=== PATIENT | female | born 1955 | race Caucasian/White ===

== ENCOUNTER → 2019-10-10 12:39 | Outpatient (CLI) | payer OTHER, SELFPAY ==
[2019-10-10 13:38] LABS: Add Manual Diff / Slide Review NO; Basophils Absolute Auto 100 /uL (0-100); Basophils Percent Auto 1.2 % (0-2); Eosinophils Absolute Auto 300 /uL (0-450); Eosinophils Percent Auto 6.4 % (2-4); Hematocrit 42.2 % (36-46); Hemoglobin 14.5 g/dL (12.0-16.0); Lymphocytes Absolute Auto 1500 /uL (1100-4500); Lymphocytes Percent Auto 28.3 % (25-40); Mean Corpuscular HGB Conc 34.3 % (30-36); Mean Corpuscular Hemoglobin 27.7 PG (26-34); Mean Corpuscular Volume 80.6 fL (80-100); Monocytes Absolute Auto 600 /uL (0-900); Monocytes Percent Auto 11.3 % (3-14); Neutrophils Absolute Auto 2800 /uL (1500-7000); Neutrophils Percent Auto 52.8 % (50-75); Platelet Count 260 X10^3/uL (150-400); Red Blood Cell Count 5.23 X10^6/uL (4.0-5.2); Red Cell Distribution Width 13.8 % (11.6-14.8); White Blood Cell Count 5.3 X10^3/uL (4.5-11.0)
[2019-10-10 13:46] LABS: BUN Creatinine Ratio 22.7 (6-22); Blood Urea Nitrogen 17 mg/dL (7-17); Calcium 10.1 mg/dL (8.4-10.2); Carbon Dioxide 34 mmol/L (22-32); Chloride 98 mmol/L (98-107); Cholesterol 244 mg/dL (140-199); Estimated Glomerular Filt Rate > 60.0 mL/min (>60); Glucose 104 mg/dL (80-110); HDL Cholesterol 35 mg/dL (40-60); HEMOLYSIS < 15 (0-50); Potassium 4.1 mmol/L (3.4-5.1); Sodium 139 mmol/L (137-145); Triglycerides 432 mg/dL (35-150)
== END ==
PROVIDERS: Family Provider Family Medicine; PCP Family Medicine; Referring Provider Internal Medicine Cardiovascular Disease; Visit Provider Internal Medicine Cardiovascular Disease
DX: I10 Essential (primary) hypertension (principal); E78.5 Hyperlipidemia, unspecified
CPT/HCPCS: 36415; 80048; 80061; 85025

== ENCOUNTER → 2019-12-25 09:01 | Outpatient (CLI) | payer OTHER, SELFPAY ==
--- NOTE | 2019-12-25 | DI.ECHO.S_ITS ---
[place] [facility] +---------+ : : [address] : [address] [place] : : : : [id number] : : : : Phone: [phone]+ Echocardiogram Report + + :Name: GE WYATT Study Date: 12/25/2019 Height: 62 in : :[facility] Weight: 127 lb : : Gender: Female BSA: 1.6 m2 : :: 1955 Age: 64 yrs BP: 165/70 mmHg: :Reason For Study: MURMUR : :Ordering Physician: ANGIE, : :PORSCHE Performed By: Isabel Pan : :Referring: PORSCHE BANGURA : + + Interpretation Summary 1) Normal left ventricular size, thickness, wall motion, and systolic function (EF 60-65%). 2) Normal right ventricular size and function. 3) Aortic sclerosis present but no stenosis or regurgitation present. 4) No prior Echo available for comparison. Procedure: A two-dimensional transthoracic echocardiogram with color flow and Doppler was performed. The study quality was technically adequate. There is no prior echocardiogram noted for this patient. The patient was in sinus bradycardia with heart rates between 57-61 bpm during the exam. Left Ventricle: The left ventricle is normal in size and wall thickness. The ejection fraction is estimated to be 60-65%. Diastolic parameters suggest probable normal left ventricular diastolic function and normal filling pressures. Right Ventricle: The right ventricle is normal in size and function. Atria: Both atria are normal in size. There is no Doppler evidence for an interatrial shunt. Mitral Valve: The mitral valve is normal in structure and function. There is trace mitral regurgitation. Aortic Valve: There is discrete nodular thickening of the non- coronary cusp. The aortic valve is mildly calcified. The aortic valve is trileaflet. There is no aortic valve stenosis. No aortic regurgitation is present. Tricuspid Valve: The tricuspid valve is normal in structure and function. There is a trace or physiologic amount of tricuspid regurgitation. Pulmonary artery pressures cannot be estimated because of the lack of a measurable TR jet velocity but the IVC suggests a CVP of around 3 mmHg. Pulmonic Valve: The pulmonic valve is not well visualized. The pulmonic valve is not well seen, but is grossly normal. There is no pulmonic valvular regurgitation. Great Vessels: The aortic root is normal size. The ascending aorta is normal in size. The IVC is of normal diameter and collapses greater than 50% with a sniff. This suggests a low right atrial pressure of 3 mm Hg. Pericardium/ Pleura There is no pericardial effusion. There is no pleural effusion. MMode/2D Measurements & Calculations LVIDd: 4.2 cm LVOT diam: 2.0 cm LVIDs: 2.7 cm Ao root diam: 2.6 cm FS: 35.4 % asc Aorta Diam: 2.7 cm EPSS: 0.44 cm Ao Arch Diam (Prox Trans): 2.5 cm IVSd: 0.79 cm LVPWd: 0.73 cm LV clark. diameter/BSA (cm/m^2): 2.7 LV sys. diameter/BSA (cm/m^2): 1.7 LA A2 area: 13.3 cm2 RA long axis: 3.9 cm LA A4 area: 8.7 cm2 RA area: 8.2 cm2 LA length (vol): 4.0 cm RA vol: 14.7 ml LA vol: 24.6 ml RA : 9.3 ml/m2 LA vol index: 15.7 ml/m2 IVC diam: 1.3 cm RVD1 (basal): 2.6 cm TAPSE: 1.9 cm Doppler Measurements & Calculations Ao V2 max: 177.1 cm/sec LVOT Max Suhas: 113.3 cm/sec Ao V2 mean: 122.6 cm/sec LV V1 max P.1 mmHg Ao max P.5 mmHg LV V1 VTI: 26.3 cm Ao mean P.9 mmHg SANJUANITA(I,D): 2.0 cm2 Ao V2 VTI: 40.1 cm SANJUANITA(V,D): 2.0 cm2 sev ratio: 0.66 SANJUANITA indexed to BSA (cm^2/m^2): 1.3 MV E max suhas: 51.4 cm/sec PA V2 max: 87.7 cm/sec MV A max suhas: 72.0 cm/sec PA V2 mean: 63.9 cm/sec MV E/A: 0.71 PA mean P.8 mmHg Med Peak E' Suhas: 5.5 cm/sec PA pr(Accel): 10.5 mmHg E/E' med: 9.4 Lat Peak E' Suhas: 7.5 cm/sec E/E' lat: 6.9 E/e' average: 8.1 MV dec time: 0.34 sec SV(LVOT): 81.5 ml Reading Physician:01:08 PM
== END ==
PROVIDERS: Family Provider Family Medicine; PCP Family Medicine; Referring Provider Internal Medicine Cardiovascular Disease; Visit Provider Internal Medicine Cardiovascular Disease
DX: R01.1 Cardiac murmur, unspecified (principal)
CPT/HCPCS: 93306

== ENCOUNTER → 2022-08-24 08:16 | Outpatient (CLI) | payer MEDICARE, OTHER, SELFPAY ==
[2022-08-24 09:08] LABS: Add Manual Diff / Slide Review NO; Basophils Absolute Auto 100 /uL (0-100); Basophils Percent Auto 1.4 % (0-2); Eosinophils Absolute Auto 300 /uL (0-450); Eosinophils Percent Auto 7.4 % (2-4); Hemoglobin 13.5 g/dL (12.0-16.0); Lymphocytes Absolute Auto 1300 /uL (1100-4500); Lymphocytes Percent Auto 27.1 % (25-40); Mean Corpuscular HGB Conc 33.7 % (30-36); Monocytes Absolute Auto 500 /uL (0-900); Monocytes Percent Auto 10.1 % (3-14); Neutrophils Absolute Auto 2600 /uL (1500-7000); Platelet Count 247 X10^3/uL (150-400); Red Cell Distribution Width 13.5 % (11.6-14.8); White Blood Cell Count 4.7 X10^3/uL (4.5-11.0)
[2022-08-24 09:44] LABS: Creatinine Urine Random 115.7 mg/dL
[2022-08-24 09:46] LABS: Alanine Aminotransferase 41 IU/L (<35); Albumin 4.4 g/dL (3.5-5.0); Albumin Globulin Ratio 1.5 (1.0-2.8); Alkaline Phosphatase 80 U/L (38-126); Aspartate Aminotransferase 33 IU/L (14-36); BUN Creatinine Ratio 17.6 (6-22); Bilirubin Total 0.5 mg/dL (0.2-1.3); Blood Urea Nitrogen 15 mg/dL (7-17); Calcium 9.5 mg/dL (8.4-10.2); Carbon Dioxide 33 mmol/L (22-32); Chloride 97 mmol/L (98-107); Cholesterol 184 mg/dL (140-199); Estimated Glomerular Filt Rate > 60 mL/min (>60); Globulin 2.9 g/dL (1.7-4.1); Glucose 166 mg/dL (80-110); HDL Cholesterol 35 mg/dL (40-60); HEMOLYSIS < 15 (0-50); Potassium 4.9 mmol/L (3.4-5.1); Sodium 137 mmol/L (137-145); Total Protein 7.3 g/dL (6.3-8.2); Triglycerides 436 mg/dL (35-150)
[2022-08-24 09:51] LABS: Microalbumi Creatinin Ratio Ur 6.9 ug/mg CR (<30); Microalbumin Urine Random 0.8 mg/dL (0-1.6)
[2022-08-24 10:13] LABS: TSH w/ Reflex to FT4 4.22 uIU/mL (0.47-4.68)
== END ==
PROVIDERS: Family Provider Family Medicine; PCP Family Medicine; Referring Provider Nurse Practitioner; Visit Provider Nurse Practitioner
DX: E11.9 Type 2 diabetes mellitus without complications (principal); L65.9 Nonscarring hair loss, unspecified
CPT/HCPCS: 36415; 80053; 80061; 82043; 82570; 84443; 85025

== ENCOUNTER → 2023-09-14 16:32 | Outpatient (CLI) | payer MEDICARE, OTHER, SELFPAY ==
[2023-09-14 18:29] LABS: Hemoglobin A1C% w Est Avg Glu 7.8 % (4.0-6.0)
[2023-09-14 19:03] LABS: BUN Creatinine Ratio 17.3 (6-22); Blood Urea Nitrogen 13 mg/dL (7-17); Carbon Dioxide 32 mmol/L (22-32); Chloride 99 mmol/L (98-107); Estimated Glomerular Filt Rate > 60 mL/min (>60); Glucose 191 mg/dL (80-110); HEMOLYSIS < 15 (0-50); Potassium 3.8 mmol/L (3.4-5.1); Sodium 138 mmol/L (137-145)
== END ==
PROVIDERS: Family Provider Family Medicine; PCP Family Medicine; Referring Provider Family Medicine; Visit Provider Family Medicine
DX: E11.9 Type 2 diabetes mellitus without complications (principal); I10 Essential (primary) hypertension; E78.2 Mixed hyperlipidemia; R07.89 Other chest pain
CPT/HCPCS: 36415; 80048; 83036

== ENCOUNTER → 2024-02-16 17:01 | Outpatient (CLI) | payer MEDICARE, OTHER, SELFPAY ==
[2024-02-16 18:20] LABS: Blood Urea Nitrogen 18 mg/dL (7-17); Calcium 9.8 mg/dL (8.4-10.2); Carbon Dioxide 28 mmol/L (22-32); Chloride 101 mmol/L (98-107); Cholesterol 131 mg/dL (140-199); Estimated Glomerular Filt Rate > 60 mL/min (>60); Glucose 117 mg/dL (80-110); HDL Cholesterol 36 mg/dL (40-60); HEMOLYSIS 26 (0-50); LDL Cholesterol Calculated 32 mg/dL (<100); Sodium 139 mmol/L (137-145); Triglycerides 317 mg/dL (35-150)
[2024-02-16 21:01] LABS: Hemoglobin A1C% w Est Avg Glu 6.6 % (4.0-6.0)
[2024-02-17 16:47] LABS: Hep C Virus Ab w/Reflex Quant NEGATIVE s/c (NEGATIVE)
== END ==
PROVIDERS: Family Provider Family Medicine; PCP Family Medicine; Referring Provider Family Medicine; Visit Provider Family Medicine
DX: E11.9 Type 2 diabetes mellitus without complications (principal); I10 Essential (primary) hypertension; E78.2 Mixed hyperlipidemia
CPT/HCPCS: 36415; 80048; 80061; 83036; 86803

== ENCOUNTER → 2024-02-23 14:07 | Outpatient (CLI) | payer MEDICARE, OTHER, SELFPAY ==
--- NOTE | 2024-02-23 14:10 | DI.RAD.S_ITS ---
PROCEDURE: XR DEXA AXIAL SKELETON INDICATIONS: screening for breast cancer COMPARISON: None. FINDINGS: Lumbar Spine: Bone mineral density 0.805 g/cm2, T score -1.9. Left Hip: Bone mineral density 0.87 g/cm2, T score -0.5. Left Femoral Neck: Bone mineral density 0.710 g/cm2, T score -1.3. Fracture Risk Calculation (when applicable): 10-year fracture risk of a major osteoporotic fracture 8.1 percent and of a hip fracture 0 point percent. (T score greater or equal to -1.0 to: NORMAL) (T score from -1.1 to -2.4: OSTEOPENIA) (T score less than or equal to -2.5: OSTEOPOROSIS) IMPRESSION: Moderate osteopenia in the lumbar spine, in the. Follow-up guidelines as follows: Osteoporosis: Consider a repeat DEXA and Vertebral Fracture Assessment (VFA) exam in 2 years or sooner if medically necessary, to reassess this patient's status. Osteopenia: Consider a repeat DEXA in 2-3 years to reassess this patient's status, or if there is a new clinical indication. Normal: Consider a repeat DEXA in 5 years or sooner, or if there is a new clinical indication. All treatment decisions require clinical judgment and consideration of individual patient factors, including patient preferences, comorbidities, previous drug use, risk factors not captured in the FRAX model (e.g., frailty, falls, vitamin D deficiency, increased bone turnover, interval significant decline in bone density ) and possible under- or over-estimation of fracture risk by FRAX. In addition, the NOF Guide recommends that FDA-approved medical therapies be considered in postmenopausal women and men age >= 50 years with a: * Hip or vertebral (clinical or morphometric) fracture * T-score of <=-2.5 at the spine or hip * Ten-year fracture probability by FRAX of >= 3% for hip fracture or >=20% for major osteoporotic fracture. People with diagnosed cases of osteoporosis or at high risk for fracture should have regular bone mineral density tests. For patients eligible for Medicare, routine testing is allowed once every 2 years. The testing frequency can be increased to one year for patients who have rapidly progressing disease, those who are receiving or discontinuing medical therapy to restore bone mass, or have additional risk factors. Dictated by: Comfort Soriano M.D. on 02/24/2024 at 15:59 Approved by: Comfort Soriano M.D. on 02/24/2024 at 16:00
--- NOTE | 2024-02-23 14:10 | DI.MG.S_ITS ---
BILATERAL DIGITAL SCREENING MAMMOGRAM 3D/2D WITH CAD: 02/23/2024 CLINICAL: Routine screening. No prior exams were available for comparison. The breasts are almost entirely fatty (category a/<25% glandular tissue). Current study was also evaluated with a Computer Aided Detection (CAD) system. No significant masses, calcifications, or other findings are seen in either breast. IMPRESSION: NEGATIVE There is no mammographic evidence of malignancy. A 1 year screening mammogram is recommended. Based on the Tyrer Cuzick model (a risk assessment model) the patient's lifetime risk is 3.5% and her 10 year risk is 1.8%. According to the ACR, ACS, and NCCN guidelines, an annual breast MRI exam along with mammogram is recommended if the patient's lifetime risk is 20% or greater. This exam was interpreted at Station ID: [id number]. NOTE: For mammograms, a report in lay terms will be sent to the patient. Approximately 15% of breast malignancies will not be visualized mammographically. In the management of a palpable breast mass, a negative mammogram must not discourage biopsy of a clinically suspicious lesion. Electronically Signed By: Michelle rolle/tony:02/23/2024 17:17:36 letter sent: Normal Exam ACR BI-RADS Category 1: Negative
== END ==
PROVIDERS: Family Provider Family Medicine; PCP Family Medicine; Referring Provider Family Medicine; Visit Provider Family Medicine
DX: Z12.31 Encounter for screening mammogram for malignant neoplasm of breast (principal); R92.313 Mammographic fatty tissue density, bilateral breasts; Z13.820 Encounter for screening for osteoporosis; M85.89 Other specified disorders of bone density and structure, multiple sites
CPT/HCPCS: 77063; 77067; 77080

== ENCOUNTER → 2024-03-16 11:20 | Outpatient (CLI) | payer MEDICARE, OTHER, SELFPAY ==
--- NOTE | 2024-03-16 11:21 | DI.MRI.S_ITS ---
PROCEDURE: MR BRAIN (IAC) WWO CON INDICATIONS: ASYMMETRICAL SENSORINEURAL HEARING LOSS TECHNIQUE: Noncontrast sagittal T1 spin echo, axial FLAIR, axial gradient echo, axial diffusion and ADC through the brain. Axial thin-slice 3D CISS, coronal TruFISP, axial T1 spin echo with fat saturation through the internal auditory canals. After the administration of contrast, thin slice axial and coronal T1 spin echo with fat saturation through the internal auditory canals, and axial and coronal and sagittal T1 spin echo with fat saturation through the brain. COMPARISON: [facility], MR, BRAIN (IAC) W&WO CONTRAST, 11/30/2014, 14:31. FINDINGS: Image quality: Excellent. Cerebellopontine angles: No cerebellopontine angle masses. Inner ear structures appear normally formed. No suspicious enhancement in the internal auditory canal or along the course of the 7th cranial nerve. CSF spaces: Ventricles are normal in size and shape. No extra-axial fluid collections. Basal cisterns are patent. Brain: No intracranial bleeds or mass effects. Hunter-white matter interface is intact. No abnormal intracranial enhancement. Diffusion weighted images demonstrate no acute ischemic insults. Brainstem appears normal. Normal intravascular flow voids are present. Skull and face: Calvarial marrow signal is normal. Orbits appear normal. Sinuses: Sinuses and mastoids are clear. IMPRESSION: No cause for patient's symptoms is identified. Normal appearance of the internal auditory canals without abnormal mass lesion or enhancement. Dictated by: Rio Odonnell M.D. on 03/16/2024 at 14:38 Approved by: Rio Odonnell M.D. on 03/16/2024 at 14:43
== END ==
PROVIDERS: Family Provider Family Medicine; PCP Family Medicine; Referring Provider Otolaryngology; Visit Provider Otolaryngology
DX: H90.3 Sensorineural hearing loss, bilateral (principal)
CPT/HCPCS: 70553; A9579

== ENCOUNTER → 2024-08-22 09:09 | Outpatient (CLI) | payer MEDICARE, OTHER, SELFPAY ==
[2024-08-22 10:39] LABS: Hemoglobin A1C% w Est Avg Glu 6.8 % (4.0-6.0)
[2024-08-22 10:45] LABS: BUN Creatinine Ratio 20.3 (6-22); Blood Urea Nitrogen 15 mg/dL (7-17); Calcium 9.7 mg/dL (8.4-10.2); Carbon Dioxide 27 mmol/L (22-32); Chloride 100 mmol/L (98-107); Estimated Glomerular Filt Rate > 60 mL/min (>60); Glucose 150 mg/dL (80-110); HEMOLYSIS < 15 (0-50); Potassium 4.2 mmol/L (3.4-5.1); Sodium 138 mmol/L (137-145)
== END ==
PROVIDERS: Family Provider Family Medicine; PCP Family Medicine; Referring Provider Family Medicine; Visit Provider Family Medicine
DX: E11.9 Type 2 diabetes mellitus without complications (principal); I10 Essential (primary) hypertension
CPT/HCPCS: 36415; 80048; 83036

== ENCOUNTER 2024-09-27 09:40 | Day surgery (SDC) | payer MEDICARE, OTHER, SELFPAY ==
[2024-09-08 10:05] VITALS: BMI 22.6
--- NOTE | 2024-09-27 10:16 | P.HP_ITS ---
History of Present Illness History of Present Illness Date Patient Seen: 09/27/24 Chief complaint: Screening Colonoscopy [facility] Medical History (Updated 09/08/24 @ 10:16 by Josette Allred, RN) Carotid artery stenosis PSVT (paroxysmal supraventricular tachycardia) CAD (coronary artery disease) Bilateral carotid artery stenosis HLD (hyperlipidemia) HTN (hypertension) Cochlear implant in place (06/2024) Encounter for subsequent annual wellness visit (AWV) in Medicare patient Wears glasses Tinnitus Hearing loss (~2013) Herpes (~1989) Cardiac arrhythmia (~2019) Holosystolic murmur Atypical chest pain Mixed hyperlipidemia (~2008) Benign essential HTN (~2008) Type 2 diabetes mellitus without complication, with no history of insulin use (~2014) Surgical History (Updated 09/08/24 @ 10:16 by Josette Allred RN) Anesthesia History of coronary angiogram (08/25/23) History of tubal ligation (~1994) History of bilateral carpal tunnel release (~1999) History of colonoscopy (~03/31/21) Social History household members: spouse Smoking Status: Never smoker Meds Home Medications and Allergies Home Medications Medication Instructions Recorded Confirmed Type atenolol 50 mg tablet 50 mg PO DAILY 03/15/23 08/22/24 History aspirin 81 mg tablet,delayed 81 mg PO DAILY 09/10/23 08/22/24 History release cetirizine 10 mg tablet (Aller-Shaniqua) 10 mg PO DAILY PRN 09/10/23 08/22/24 History rosuvastatin 5 mg tablet 5 mg PO DAILY #90 tabs 06/26/24 08/22/24 Rx blood sugar diagnostic (FreeStyle #100 ea 07/14/24 08/22/24 Rx Lite Strips) valacyclovir 1 gram tablet 1,000 mg PO .COMPLEX PRN HSV 07/14/24 08/22/24 Rx outbreak #5 tabs amlodipine 10 mg tablet 10 mg PO DAILY #100 tabs 08/22/24 08/22/24 Rx bio-Flex (vitamin) PO DAILY 08/22/24 History losartan 100 mg tablet 100 mg PO DAILY #100 tabs 08/22/24 08/22/24 Rx magnesium aspart,citrate,oxide mg PO .every other day 08/22/24 08/22/24 History metformin 500 mg tablet 1,000 mg (2 x 500 mg) PO BID #180 08/22/24 08/22/24 Rx tabs multivitamin (One Daily 1 tab PO DAILY 08/22/24 08/22/24 History Multivitamin tablet) semaglutide 0.25 mg or 0.5 mg (2 0.5 mg (0.736 mL) SUBCUT QWEEK #9 08/22/24 08/22/24 Rx mg/3 mL) subcutaneous pen injector mL (Ozempic) sodium,potassium,mag sulfates 17.5 See Rx Instructions PO .COMPLEX 08/28/24 Rx gram-3.13 gram-1.6 gram oral soln #354 mL (Suprep Bowel Prep Kit) hydrochlorothiazide 25 mg tablet 25 mg PO DAILY #90 tabs 09/11/24 Rx Allergies Allergy/AdvReac Type Severity Reaction Status Date / Time amoxicillin Allergy Unknown Verified 09/27/24 10:13 codeine Allergy Unknown Verified 09/27/24 10:13 [id number]-[id number] Reductase Allergy Unknown Verified 09/27/24 10:13 Inhibitor [Thwralq-Hnb-Yee Reductase Inhibitor] Exam Narrative Exam Narrative: Oropharynx free of lesions Chest clear to auscultation percussion Cardiac exam reveals no S3 or murmur Assessment & Plan Assessment & Plan narrative: History of adenomatous colon polyps need for follow-up colonoscopy. Risks, benefits, alternatives have been explained. Time-Based Coding :: [TOTAL MINUTES] spent with patient and on the chart (including review of chart, obtaining history, exam, reviewing outside data, placing orders, documenting exam and treatment plan, and counseling patient) on [DATE]. PROFEE Feeder Operator Document charge(s): No
--- NOTE | 2024-09-27 10:17 | PM.OP.COLON ---
Operative Date/Time/Diagnoses Date of procedure: 09/27/24 Time of procedure: 10:58 Pre-op diagnosis: See indication and findings Post-op diagnosis: same Procedure & Clinicians Study performed: Colonoscopy Same procedure as scheduled: Yes Indications: History of polyps Surgeon: Any Hernandez Procedure Notes Procedure in detail: After informed consent was obtained the patient was placed in left lateral decubitus position. The video colonoscope was introduced the rectum slowly advanced cecum. On slow withdrawal mucosa was carefully examined. The scope was removed. The patient tolerated procedure well. Blood loss none Complications none Sedation mac Findings 1. Normal colonoscopy to cecum Patient should have follow-up colonoscopy in 5 years
[2024-09-27 10:26] VITALS: BP 157/52; PULSE 70; RESP 16; TEMP 36.4; O2SAT 98
[2024-09-27 10:58] VITALS: BP 121/64; PULSE 58; RESP 14; TEMP 36.2; O2SAT 95
[2024-09-27 11:03] VITALS: BP 96/48; PULSE 58; RESP 12; O2SAT 98
[2024-09-27 11:08] VITALS: BP 111/50; PULSE 57; RESP 12; O2SAT 99
[2024-09-27 11:12] VITALS: BP 113/53; PULSE 58; RESP 14; TEMP 36.9; O2SAT 98
[2024-09-27 11:24] VITALS: BP 111/52; PULSE 58; RESP 14; TEMP 36.6; O2SAT 97
[2024-09-27] MEDS: LACTATED RINGERS 1,000 ML 42 ML IV (11:29)
== END 2024-09-27 11:38 | disposition home or self-care (01) ==
PROVIDERS: Family Provider Family Medicine; PCP Family Medicine; Referring Provider Internal Medicine Gastroenterology; Visit Provider Internal Medicine Gastroenterology
PROC: 0DJD8ZZ Inspection of Lower Intestinal Tract, Via Natural or Artificial Opening Endoscopic (ICD-10-PCS; CPT 45378; principal; 2024-09-27 11:00)
DX: Z12.11 Encounter for screening for malignant neoplasm of colon (principal); Z86.0100 Personal history of colon polyps, unspecified
CPT/HCPCS: G0105; J2704

== ENCOUNTER → 2025-02-20 14:17 | Outpatient (CLI) | payer MEDICARE, OTHER, SELFPAY ==
[2025-02-20 15:50] LABS: Alanine Aminotransferase 34 IU/L (<35); Albumin 4.9 g/dL (3.5-5.0); Albumin Globulin Ratio 2.1 (1.0-2.8); Alkaline Phosphatase 68 U/L (38-126); Blood Urea Nitrogen 13 mg/dL (7-17); Calcium 10.0 mg/dL (8.4-10.2); Carbon Dioxide 28 mmol/L (22-32); Chloride 101 mmol/L (98-107); Cholesterol 143 mg/dL (140-199); Estimated Glomerular Filt Rate > 60 mL/min (>60); Globulin 2.3 g/dL (1.7-4.1); Glucose 114 mg/dL (70-99); HDL Cholesterol 39 mg/dL (40-60); HEMOLYSIS < 15 (0-50); Potassium 4.6 mmol/L (3.4-5.1); Sodium 140 mmol/L (137-145); Total Protein 7.2 g/dL (6.3-8.2); Triglycerides 378 mg/dL (35-150)
[2025-02-20 15:55] LABS: Hemoglobin A1C% w Est Avg Glu 7.0 % (4.0-6.0)
== END ==
PROVIDERS: PCP Family Medicine; Referring Provider Family Medicine; Visit Provider Family Medicine
DX: Z00.00 Encounter for general adult medical examination without abnormal findings (principal); E11.9 Type 2 diabetes mellitus without complications; E78.2 Mixed hyperlipidemia; I10 Essential (primary) hypertension; D48.5 Neoplasm of uncertain behavior of skin; L82.1 Other seborrheic keratosis
CPT/HCPCS: 36415; 80053; 80061; 83036